=== PATIENT | female | born 1940 | race Caucasian/White ===

== ENCOUNTER 2018-04-23 15:49 | Inpatient (IN) ==
[2018-04-24] MEDS ORDERED: Ipratropium/Albuterol Neb 3 ML IH PRN (16:25)
[2018-04-24] MEDS ORDERED: Dextrose Gel 15 GM/37.5 ML TUBE PO PRN ×2 (16:29)
[2018-04-24] MEDS ORDERED: D5% in Water 1,000 ML IVC PRN (16:29)
[2018-04-24] MEDS ORDERED: *HR* Dextrose 50 % in Water (Syg) 50 ML SYRINGE IVP PRN (16:29)
[2018-04-24] MEDS: Doxycycline 100 MG CAPSULE PO SCH (18:23)
[2018-04-24] MEDS: Insulin LISPRO 300 UNITS/3 ML VIAL SQ SCH ×2 (18:23→21:11)
[2018-04-24] MEDS: *HR* Rivaroxaban 10 MG TABLET PO SCH (18:23)
[2018-04-24] MEDS: *HR* GlipiZIDE XL (24 HR) 10 MG TABLET PO SCH (18:23)
--- NOTE | 2018-04-24 18:34 | Internal Med History&Physical ---
Date of Encounter: 04/24/18 Time of Encounter: 16:00 Internal Medicine - H&P: HPI Chief complaint: Right Total Knee replacement surgery Admitted From: Hospital to Hospital Transfer History of present illness: Ms. Ronquillo is a 78 year old female who had R total knee surgery HPI : Pt is admit to our rehab unit for deconditioning after recent R total knee surgery. Pt has hx of arthritic knee pain. She says her pain is currently well controlled. She says she has good appetite. Denies fever chills. Denies chest pain. Denies headache. She has hx of poorly controlled hypertension and previous cerebrovascular accident, but no recent problems with this, She has had recent good control of blood pressure. Previous imaging showed Severe chronic small-vessel ischemic changes. No previous carotid or cardiac disease She had had diabetes and has been using glipizide denies hypoglycemic issues. 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 PAST SURGICAL HISTORY: Cholecystectomy January of 2012, hysterectomy with BSO 1959, recent knee surgery FAMILY HISTORY: Father secondary to heart disease. Sister with brain cancer. Mother with heart disease. SOCIAL HISTORY: The patient denies ever using tobacco. She does not use alcohol or any illicit drugs. some stress in her life. REVIEW OF SYSTEMS: A 10-point review of systems is obtained and was negative other than what is stated in the history of present illness. PHYSICAL EXAMINATION: GENERAL: The patient is awake, alert, talkative and soft spoken oriented HEENT: perrlac Mucous membranes are tacky. NECK: Supple. thick No lymphadenopathy. no bruit LUNGS: Clear to auscultation bilat abd obese full soft nt bs ext pedal pulses intact neuro: Intact no gross deficits Cranial nerves 2-12 are equal and intact ASSESSMENTS AND PLANS (1) Deconditioning after Right Total Knee replacement surgery pain control therapy ordered PT OT recreation social stable without current complications incentive spirometry (2) Diabetes Type 2 stable appetite fair will add glucerna supplements ok to continue glipizide but if sugars low, will hold check sugars and add slide scale continue statin (3) Chronic kidney disease stable will monitor electrolytes (4) Hypertension - has been difficult in past with hx of prior CVA no recent problems with this BP stable will continue current therapy and continue to monitor (5) hx of barretts esophagus continue PPI DVT prophlyaxis Past Med Surg Social Fam HX - Past Medical History Medical history: CVA, diabetes, GERD, hyperlipidemia, hypertension, thyroid disease Additional medical history: CKD II, Heart murmur, hernia Psychiatric history: no psych history - Past Surgical History Surgical History: hysterectomy Additional surgical history: bilateral breast cyst removal, lumbar fusion, knee replacement - Social History Smoking Status: Never smoker Smokeless Tobacco Status: No Alcohol use: none Drug use: none - Family History Father Hx Family Cancer: Yes Mother Hx Family Cardiac Disorders: Yes Internal Medicine - H&P: Meds Cholecalciferol (Vitamin D3) [Vitamin D3] 1,000 unit PO DAILY 04/24/18 [History] Clopidogrel [Plavix] 75 mg PO DAILY 04/24/18 [History] Esomeprazole Magnesium [Nexium] 40 mg PO QPM 04/24/18 [History] Furosemide [Lasix] 20 mg PO DAILY 04/24/18 [History] GlipiZIDE [Glipizide ER] 10 mg PO QPM 04/24/18 [History] Hydrochlorothiazide 25 mg PO QAM 04/24/18 [History] Labetalol HCl 200 mg PO BID 04/24/18 [History] Levothyroxine Sodium [Synthroid] 137 mcg PO 0600 04/24/18 [History] Lipitor 40 mg PO DAILY 04/24/18 [History] Magnesium Oxide [Magnesium] 400 mg PO TID 04/24/18 [History] Potassium Chloride [K-Tab ER] 20 meq PO BID 04/24/18 [History] amLODIPine [Norvasc] 5 mg PO DAILY 04/24/18 [History] hydrALAZINE [HydrALAZINE] 25 mg PO BID 04/24/18 [History] Allergy/AdvReac Type Severity Reaction Status Date / Time ciprofloxacin Allergy Gastrointestinal Verified 04/24/18 15:23 Upset meperidine [From Demerol] Allergy Anaphylaxis Verified 04/24/18 15:23 morphine Allergy Hives Verified 04/24/18 15:23 pentazocine [From Talwin] Allergy Anaphylaxis Verified 04/24/18 15:23 propoxyphene [From Darvon] Allergy Anaphylaxis Verified 04/24/18 15:23 All Systems PM: A 10-system review of systems was performed and is negative for pertinent findings except as documented above in the HPI. - Constitutional Vitals: Temp Pulse Resp BP Pulse Ox 98.9 F 65 14 159/79 92 04/24/18 15:00 04/24/18 15:00 04/24/18 15:00 04/24/18 15:00 04/24/18 15:00 Internal Med - H&P Results - Labs CBC & Chem 7: 04/26/18 04:20 04/26/18 04:20
[2018-04-24] MEDS: Magnesium Oxide 400 MG TABLET PO SCH (21:15)
[2018-04-24] MEDS: hydrALAZINE 25 MG TABLET PO SCH (21:15)
[2018-04-25] MEDS: *HR* OxyCODONE/APAP 5/325 TABLET PO PRN ×3 (05:49→23:36)
[2018-04-25] MEDS: Doxycycline 100 MG CAPSULE PO SCH ×2 (05:49→17:42)
[2018-04-25 06:18] LABS: Basophils % 0.3 %; Eosinophils # 0.3 K/mcL (0.0-0.6); Eosinophils % 4.5 %; Hematocrit 34.4 % (35.3-44.9); Hemoglobin 11.3 g/dL (11.5-15.4); Immature Granulocytes % 0.4 % (0-4); Lymphocytes # 1.1 K/mcL (0.6-4.6); Lymphocytes % 15.1 %; Mean Corpuscular HGB Conc 32.8 g/dL (31.6-35.5); Mean Corpuscular Hemoglobin 30.1 pg (28.0-33.3); Mean Corpuscular Volume 91.5 fL (83.0-100.0); Mean Platelet Volume 9.3 fL (9.4-12.4); Monocytes # 0.6 K/mcL (0.0-1.3); Monocytes % 7.9 %; Neutrophils # 5.1 K/mcL (1.6-8.9); Platelet Count 233 K/mcL (140-400); Red Blood Count 3.76 M/mcL (3.82-4.97); Red Cell Distribution Width 13.7 % (11.5-14.5); Segmented Neutrophils % 71.8 %
[2018-04-25 06:33] LABS: Calcium 9.6 mg/dL (8.6-10.3); Potassium 3.6 mEq/L (3.5-5.1)
[2018-04-25] MEDS: Insulin LISPRO 300 UNITS/3 ML VIAL SQ SCH ×4 (08:15→20:27)
[2018-04-25] MEDS: Furosemide 20 MG TABLET PO SCH (08:16)
[2018-04-25] MEDS: hydrALAZINE 25 MG TABLET PO SCH ×2 (08:16→20:34)
[2018-04-25] MEDS: Magnesium Oxide 400 MG TABLET PO SCH ×3 (08:16→20:34)
[2018-04-25] MEDS: hydroCHLOROthiazide 25 MG TABLET PO SCH (08:16)
[2018-04-25] MEDS: amLODIPine 5 MG TABLET PO SCH (08:16)
[2018-04-25] MEDS: Cholecalciferol (D-3) 1,000 UNIT TABLET PO SCH (08:16)
[2018-04-25] MEDS: *HR* Rivaroxaban 10 MG TABLET PO SCH (17:42)
[2018-04-25] MEDS: *HR* GlipiZIDE XL (24 HR) 10 MG TABLET PO SCH (17:42)
[2018-04-26] MEDS: Doxycycline 100 MG CAPSULE PO SCH ×2 (04:20→17:02)
[2018-04-26 04:59] LABS: Basophils % 0.4 %; Eosinophils # 0.3 K/mcL (0.0-0.6); Eosinophils % 5.7 %; Hematocrit 33.9 % (35.3-44.9); Immature Granulocytes % 0.5 % (0-4); Lymphocytes # 1.2 K/mcL (0.6-4.6); Lymphocytes % 21.4 %; Mean Corpuscular HGB Conc 32.4 g/dL (31.6-35.5); Mean Corpuscular Hemoglobin 29.6 pg (28.0-33.3); Mean Corpuscular Volume 91.4 fL (83.0-100.0); Mean Platelet Volume 9.3 fL (9.4-12.4); Monocytes # 0.4 K/mcL (0.0-1.3); Monocytes % 7.9 %; Neutrophils # 3.6 K/mcL (1.6-8.9); Platelet Count 226 K/mcL (140-400); Red Blood Count 3.71 M/mcL (3.82-4.97); Red Cell Distribution Width 13.9 % (11.5-14.5); Segmented Neutrophils % 64.1 %
[2018-04-26 05:04] LABS: BUN/Creatinine Ratio 13 (6-26); Blood Urea Nitrogen 13 mg/dL (8-23); Calcium 9.4 mg/dL (8.6-10.3); Carbon Dioxide 32 mEq/L (23-29); Chloride 101 mEq/L (98-107); Glucose 128 mg/dL (70-105); Osmolality,Calculated 292 (280-300); Potassium 3.6 mEq/L (3.5-5.1); Sodium 140 mEq/L (136-145); eGFR For Non-African Americans 55 (> 60)
[2018-04-26] MEDS: Cholecalciferol (D-3) 1,000 UNIT TABLET PO SCH (08:14)
[2018-04-26] MEDS: Insulin LISPRO 300 UNITS/3 ML VIAL SQ SCH ×4 (08:14→21:34)
[2018-04-26] MEDS: hydroCHLOROthiazide 25 MG TABLET PO SCH (08:14)
[2018-04-26] MEDS: amLODIPine 5 MG TABLET PO SCH (08:14)
[2018-04-26] MEDS: hydrALAZINE 25 MG TABLET PO SCH ×2 (08:14→21:35)
[2018-04-26] MEDS: Furosemide 20 MG TABLET PO SCH (08:14)
[2018-04-26] MEDS: Magnesium Oxide 400 MG TABLET PO SCH ×3 (08:14→21:36)
--- NOTE | 2018-04-26 12:01 | Internal Med Progress Note ---
Date of Encounter: 04/25/18 Time of Encounter: 14:00 - Subjective Interval history: Interval History Ms. Ronquillo is a 78 year old female who had R total knee surgery and is 11-9 admit to our rehab unit for deconditioning after recent R total knee surgery. Pt has been doing well no head ache no chest pain. hx of arthritic knee pain. She says her pain is currently well controlled. She says she has improved appetite. Denies fever chills. Denies chest pain. D enies headache. She has hx of poorly controlled hypertension and previous cerebrovascular accident, but no recent problems with this, She has had recent good control of blood pressure on mult medications and diuretics. Previous imaging showed Severe chronic small-vessel ischemic changes. No previous carotid or cardiac disease PHYSICAL EXAMINATION: GENERAL: The patient is awake, alert, talkative and soft spoken oriented HEENT: perrlac Mucous membranes are tacky. NECK: Supple. thick No lymphadenopathy. no bruit LUNGS: Clear to auscultation bilat abd obese full soft nt bs ext pedal pulses intact neuro: Intact no gross deficits Cranial nerves 2-12 are equal and intact ASSESSMENTS AND PLANS (1) Deconditioning after Right Total Knee replacement surgery pain control good therapy ordered PT OT recreation social stable without current complications added incentive spirometry duonebs prn (2) Diabetes Type 2 stable appetite fair will add glucerna supplements trend of sugars low, will reduce her glipizide 224 hr 10 mg to 5 mg dose check sugars and add slide scale continue statin (3) Chronic kidney disease stable GFR 54 will monitor electrolytes (4) Hypertension - has been difficult in past - with hx of prior CVA no recent problems with this admission BP stable will continue current therapy medications and continue to monitor (5) hx of barretts esophagus continue PPI (6) Hypothyroid hx continue replacement med DVT prophlyaxis - on oral xarelto Allergy/AdvReac Type Severity Reaction Status Date / Time ciprofloxacin Allergy Gastrointestinal Verified 04/24/18 15:23 Upset meperidine [From Demerol] Allergy Anaphylaxis Verified 04/24/18 15:23 morphine Allergy Hives Verified 04/24/18 15:23 pentazocine [From Talwin] Allergy Anaphylaxis Verified 04/24/18 15:23 propoxyphene [From Darvon] Allergy Anaphylaxis Verified 04/24/18 15:23 - Constitutional Vitals: Temp Pulse Resp BP Pulse Ox 98.4 F 62 16 149/72 92 04/26/18 07:26 04/26/18 07:26 04/26/18 07:26 04/26/18 07:26 04/26/18 07:26 Internal Medicine: Result - Labs CBC & Chem 7: 04/26/18 04:20 04/26/18 04:20 Labs: Short CBC 04/26/18 Range/Units 04:20 WBC 5.6 (4.3-11.1) K/mcL Hgb 11.0 L (11.5-15.4) g/dL Hct 33.9 L (35.3-44.9) % Plt Count 226 (140-400) K/mcL Neutrophils # 3.6 (1.6-8.9) K/mcL BMP 04/26/18 04:20 Sodium 140 Potassium 3.6 Chloride 101 Carbon Dioxide 32 H BUN 13 Creatinine 0.97 Glucose 128 H Calcium 9.4 Consult Discharge Plan - Plan Referrals: Emil Recio MD [Primary Care Provider] -
--- NOTE | 2018-04-26 12:03 | Internal Med Progress Note ---
Date of Encounter: 04/26/18 Time of Encounter: 12:01 - Subjective Interval history: Interval History Ms. Ronquillo is a 78 year old female who had recent R total knee surgery and is 11-9 admit to our rehab unit for deconditioning after surgery. Pt has been doing well here and participating in therapy. She says still tired. no head ache no chest pain. hx of arthritic knee pain. She says her pain is currently well controlled. She says she has improved appetite. Denies fever chills. Denies chest pain. Denies headache. She has hx of poorly controlled hypertension and previous cerebrovascular accident, but no recent problems with this, She has had recent good control of blood pressure on mult medications and diuretics. Previous imaging showed Severe chronic small-vessel ischemic changes. No previous carotid or cardiac disease PHYSICAL EXAMINATION: GENERAL: The patient is awake, alert, talkative and soft spoken oriented WF HEENT: no lesion NECK: Supple. thick No lymphadenopathy. no bruit LUNGS: Clear to auscultation bilat abd obese full soft nt bs ext pedal pulses intact neuro: Intact no gross deficits Cranial nerves 2-12 are equal and intact ASSESSMENTS AND PLANS (1) Deconditioning after Right Total Knee replacement surgery pain control good therapy ordered PT OT recreation social stable without current complications added incentive spirometry duonebs prn (2) Diabetes Type 2 stable appetite fair will add glucerna supplements trend of sugars low, will reduce her glipizide 224 hr 10 mg to 5 mg dose check sugars and add slide scale continue statin (3) Chronic kidney disease stable GFR 54 will monitor electrolytes (4) Hypertension - has been difficult in past - with hx of prior CVA no recent problems with this admission BP stable will continue current therapy medications and continue to monitor (5) hx of barretts esophagus continue PPI (6) Hypothyroid hx continue replacement med DVT prophlyaxis - on oral xarelto Allergy/AdvReac Type Severity Reaction Status Date / Time ciprofloxacin Allergy Gastrointestinal Verified 04/24/18 15:23 Upset meperidine [From Demerol] Allergy Anaphylaxis Verified 04/24/18 15:23 morphine Allergy Hives Verified 04/24/18 15:23 pentazocine [From Talwin] Allergy Anaphylaxis Verified 04/24/18 15:23 propoxyphene [From Darvon] Allergy Anaphylaxis Verified 04/24/18 15:23 - Constitutional Vitals: Temp Pulse Resp BP Pulse Ox 98.4 F 62 16 149/72 92 04/26/18 07:26 04/26/18 07:26 04/26/18 07:26 04/26/18 07:26 04/26/18 07:26 Internal Medicine: Result - Labs CBC & Chem 7: 04/26/18 04:20 04/26/18 04:20 Labs: Short CBC 04/26/18 Range/Units 04:20 WBC 5.6 (4.3-11.1) K/mcL Hgb 11.0 L (11.5-15.4) g/dL Hct 33.9 L (35.3-44.9) % Plt Count 226 (140-400) K/mcL Neutrophils # 3.6 (1.6-8.9) K/mcL BMP 04/26/18 04:20 Sodium 140 Potassium 3.6 Chloride 101 Carbon Dioxide 32 H BUN 13 Creatinine 0.97 Glucose 128 H Calcium 9.4 Consult Discharge Plan - Plan Referrals: Emil Recio MD [Primary Care Provider] -
[2018-04-26] MEDS: Lactobacillus 1 EACH CAP.SPRINK PO SCH (15:10)
[2018-04-26] MEDS: Ipratropium/Albuterol Neb 3 ML IH SCH ×2 (15:10→21:41)
[2018-04-26 16:06] LABS: Bilirubin,Urine Negative (Negative); Blood,Urine Negative (Negative); Clarity,Urine Clear (Clear); Color,Urine Yellow (Yellow); Glucose,Urine (UA) Normal (Normal); Ketones,Urine Negative (Negative); Leukocyte Esterase,Urine Negative (Negative); Nitrite,Urine Negative (Negative); Protein,Urine Negative (Neg-Trace); Specific Gravity,Urine 1.015 (1.010-1.025); Urobilinogen,Urine Normal (Normal)
[2018-04-26] MEDS: *HR* GlipiZIDE XL (24 HR) 2.5 MG TABLET PO SCH (17:02)
[2018-04-26] MEDS: *HR* Rivaroxaban 10 MG TABLET PO SCH (17:02)
[2018-04-26] MEDS: *HR* OxyCODONE/APAP 5/325 TABLET PO PRN (21:40)
[2018-04-27] MEDS: Ipratropium/Albuterol Neb 3 ML IH SCH ×4 (04:03→20:42)
[2018-04-27 05:18] LABS: Basophils % 0.6 %; Eosinophils # 0.3 K/mcL (0.0-0.6); Eosinophils % 5.3 %; Hematocrit 33.5 % (35.3-44.9); Immature Granulocytes % 1.1 % (0-4); Lymphocytes # 1.2 K/mcL (0.6-4.6); Lymphocytes % 18.7 %; Mean Corpuscular HGB Conc 32.8 g/dL (31.6-35.5); Mean Corpuscular Hemoglobin 29.8 pg (28.0-33.3); Mean Corpuscular Volume 90.8 fL (83.0-100.0); Mean Platelet Volume 9.4 fL (9.4-12.4); Monocytes # 0.6 K/mcL (0.0-1.3); Neutrophils # 4.1 K/mcL (1.6-8.9); Platelet Count 251 K/mcL (140-400); Red Blood Count 3.69 M/mcL (3.82-4.97); Red Cell Distribution Width 13.7 % (11.5-14.5); Segmented Neutrophils % 65.3 %
[2018-04-27 05:40] LABS: BUN/Creatinine Ratio 13 (6-26); Blood Urea Nitrogen 13 mg/dL (8-23); Calcium 9.6 mg/dL (8.6-10.3); Carbon Dioxide 33 mEq/L (23-29); Chloride 100 mEq/L (98-107); Glucose 102 mg/dL (70-105); Osmolality,Calculated 290 (280-300); Potassium 3.5 mEq/L (3.5-5.1); Sodium 140 mEq/L (136-145); eGFR For Non-African Americans 52 (> 60)
[2018-04-27] MEDS: Doxycycline 100 MG CAPSULE PO SCH ×2 (06:06→18:59)
[2018-04-27] MEDS: Acetaminophen 325 MG TABLET PO PRN ×3 (06:19→18:59)
[2018-04-27] MEDS: Furosemide 20 MG TABLET PO SCH (08:43)
[2018-04-27] MEDS: Lactobacillus 1 EACH CAP.SPRINK PO SCH (08:43)
[2018-04-27] MEDS: amLODIPine 5 MG TABLET PO SCH (08:43)
[2018-04-27] MEDS: hydrALAZINE 25 MG TABLET PO SCH ×2 (08:43→20:41)
[2018-04-27] MEDS: hydroCHLOROthiazide 25 MG TABLET PO SCH (08:43)
[2018-04-27] MEDS: Cholecalciferol (D-3) 1,000 UNIT TABLET PO SCH (08:43)
[2018-04-27] MEDS: Magnesium Oxide 400 MG TABLET PO SCH ×3 (08:44→20:41)
[2018-04-27] MEDS: Insulin LISPRO 300 UNITS/3 ML VIAL SQ SCH ×4 (08:44→20:42)
--- NOTE | 2018-04-27 15:17 | Internal Med Progress Note ---
Addendum entered and electronically signed by Truman Sanchez DO 05/01/18 11:37: I have personally performed a face to face evaluation on this patient. I have reviewed and agree with the care plan. History and Exam by me shows: Original Note: Date of Encounter: 04/27/18 Time of Encounter: 15:15 - Assessment and plan (1) S/P total knee replacement Current Visit: Yes Status: Acute Assessment and plan: Continue PT and OT. Will follow progress. Pain controlled with current medication. Follow up with ortho as scheduled. Qualifiers: Laterality: right Qualified Code(s): Z96.651 - Presence of right artificial knee joint (2) Hypertension Current Visit: Yes Status: Acute Assessment and plan: Controlled with current medication. Monitor blood pressure. Qualifiers: Hypertension type: essential hypertension Qualified Code(s): I10 - Essential (primary) hypertension (3) Type 2 diabetes mellitus Current Visit: Yes Status: Acute Assessment and plan: Controlled with current medication. Monitor fingerstick blood sugar. Will adjust medicines as necessary. Qualifiers: Diabetes mellitus longterm insulin use: without longterm use Diabetes mellitus complication status: without complication Qualified Code(s): E11.9 - Type 2 diabetes mellitus without complications - Time Spent With Patient less than 15 minutes - Subjective Interval history: Participating well with therapy. Transfers with contact guard assist. States pain is controlled with oxycodone. Remains on O2 at 2 L. Saturation greater th an 92%. Working on weaning off oxygen. on xarelto for DVT prophylaxis. Denies fever, chills, nausea vomiting or diarrhea. Last BM yesterday. Maintaining appetite and hydration. - Constitutional Vitals: Temp Pulse Resp BP Pulse Ox 97.9 F 70 19 178/79 97 04/27/18 07:52 04/27/18 07:52 04/27/18 09:11 04/27/18 07:52 04/27/18 09:11 General appearance: Present: cooperative, A&O X 3, pleasant, no acute distress, obese, answers questions appropriately - Head Head exam: Present: atraumatic, normocephalic - Eye Eye exam: Present: PERRL, conjuntiva pink, sclera anicteric Pupils: Present: PERRL - Neck Neck exam general surgery: Present: supple, trachea midline. Absent: lymphadenopathy - Respiratory Respiratory exam: Present: CTAB. Absent: accessory muscle use, rales, rhonchi, wheezes - Cardiovascular Cardiovascular exam: Present: RRR, +S1, +S2. Absent: diastolic murmur, gallop, rubs, systolic murmur - GI/Abdominal GI/Abdominal exam: Present: normal bowel sounds, soft, no peritoneal signs. Absent: distended, tenderness - Extremities Exam Extremities exam: Present: warm, radial pulses palpable and symmetrical. Absent: calf tenderness, cyanotic, pedal edema - Incison Comments: Right knee incision dressing dry and intact. - Neurological Exam Neurological exam: Present: CN II-XII intact, oriented X3, no focal deficits. Absent: pronater drift, facial droop, speech deficit - Skin Skin exam: Present: dry, intact Internal Medicine: Result - Labs CBC & Chem 7: 04/27/18 04:22 04/27/18 04:22 Labs: Short CBC 04/27/18 Range/Units 04:22 WBC 6.2 (4.3-11.1) K/mcL Hgb 11.0 L (11.5-15.4) g/dL Hct 33.5 L (35.3-44.9) % Plt Count 251 (140-400) K/mcL Neutrophils # 4.1 (1.6-8.9) K/mcL BMP 04/27/18 04:22 Sodium 140 Potassium 3.5 Chloride 100 Carbon Dioxide 33 H BUN 13 Creatinine 1.02 Glucose 102 Calcium 9.6 Urine 04/26/18 Range/Units 15:30 Urine Color Yellow (Yellow) Urine Clarity Clear (Clear) Urine pH 6.0 (5.0-8.0) pH Units Ur Specific [place] 1.015 (1.010-1.025) Urine Protein Negative (Neg-Trace) mg/dL Urine Glucose (UA) Normal (Normal) mg/dL - Impressions Impressions Chest X-Ray 04/27/18 08:03 IMPRESSION: Cardiomegaly, with a hiatal hernia and vascular congestion. D/ / Srikanth Lloyd MD / Srikanth Lloyd MD Interpreting Provider: Srikanth Lloyd MD Consult Discharge Plan - Plan Referrals: Emil Recio MD [Primary Care Provider] -
[2018-04-27] MEDS: *HR* Rivaroxaban 10 MG TABLET PO SCH (18:59)
[2018-04-27] MEDS: *HR* GlipiZIDE XL (24 HR) 2.5 MG TABLET PO SCH (18:59)
[2018-04-28] MEDS: Ipratropium/Albuterol Neb 3 ML IH SCH ×4 (05:01→21:10)
[2018-04-28] MEDS: Doxycycline 100 MG CAPSULE PO SCH ×2 (05:34→16:16)
[2018-04-28] MEDS: Acetaminophen 325 MG TABLET PO PRN ×3 (05:34→22:38)
[2018-04-28] MEDS: Magnesium Oxide 400 MG TABLET PO SCH ×3 (08:25→20:50)
[2018-04-28] MEDS: Insulin LISPRO 300 UNITS/3 ML VIAL SQ SCH ×4 (08:25→20:52)
[2018-04-28] MEDS: hydrALAZINE 25 MG TABLET PO SCH ×2 (08:26→20:50)
[2018-04-28] MEDS: Lactobacillus 1 EACH CAP.SPRINK PO SCH (08:26)
[2018-04-28] MEDS: Cholecalciferol (D-3) 1,000 UNIT TABLET PO SCH (08:26)
[2018-04-28] MEDS: amLODIPine 5 MG TABLET PO SCH (08:26)
[2018-04-28] MEDS: Furosemide 20 MG TABLET PO SCH (08:26)
[2018-04-28] MEDS: hydroCHLOROthiazide 25 MG TABLET PO SCH (08:26)
--- NOTE | 2018-04-28 10:25 | Internal Med Progress Note ---
Addendum entered and electronically signed by Truman Sanchez DO 05/01/18 11:38: I have personally performed a face to face evaluation on this patient. I have reviewed and agree with the care plan. History and Exam by me shows: Original Note: Date of Encounter: 04/28/18 Time of Encounter: 10:23 - Assessment and plan (1) S/P total knee replacement Current Visit: Yes Status: Acute Assessment and plan: Continue PT and OT. Will follow progress. Pain controlled with current medication. Follow up with ortho as scheduled. Qualifiers: Laterality: right Qualified Code(s): Z96.651 - Presence of right artificial knee joint (2) Hypertension Current Visit: Yes Status: Acute Assessment and plan: Controlled with current medication. Monitor blood pressure. Qualifiers: Hypertension type: essential hypertension Qualified Code(s): I10 - Essential (primary) hypertension (3) Type 2 diabetes mellitus Current Visit: Yes Status: Acute Assessment and plan: Controlled with current medication. Monitor fingerstick blood sugar. Will adjust medicines as necessary. Qualifiers: Diabetes mellitus long-term insulin use: without long-term use Diabetes mellitus complication status: without complication Qualified Code(s): E11.9 - Type 2 diabetes mellitus without complications - Time Spent With Patient less than 15 minutes - Subjective Interval history: very tearful and worried about discharge, takes care of disabled daughter. son helping now. Participating well with therapy. Transfers with contact guard as sist. States pain is controlled with oxycodone. Remains on O2 at 2 L. Saturation greater than 95%. Working on weaning off oxygen. on xarelto for DVT prophylaxis. Denies fever, chills, nausea vomiting or diarrhea. Last BM yesterday. Maintaining appetite and hydration. - Constitutional Vitals: Temp Pulse Resp BP Pulse Ox 98.5 F 62 19 129/64 97 04/27/18 19:16 04/27/18 19:16 04/28/18 10:09 04/27/18 19:16 04/28/18 10:09 General appearance: Present: cooperative, A&O X 3, pleasant, no acute distress, obese, answers questions appropriately - Head Head exam: Present: atraumatic, normocephalic - Eye Eye exam: Present: PERRL, conjuntiva pink, sclera anicteric Pupils: Present: PERRL - Neck Neck exam general surgery: Present: supple, trachea midline. Absent: lymphadenopathy - Respiratory Respiratory exam: Present: CTAB. Absent: accessory muscle use, rales, rhonchi, wheezes - Cardiovascular Cardiovascular exam: Present: RRR, +S1, +S2. Absent: diastolic murmur, gallop, rubs, systolic murmur - GI/Abdominal GI/Abdominal exam: Present: normal bowel sounds, soft, no peritoneal signs. Absent: distended, tenderness - Extremities Exam Extremities exam: Present: warm, radial pulses palpable and symmetrical. Absent: calf tenderness, cyanotic, pedal edema - Incison Comments: right knee incision drsg dry and intact. surrounding edema present. - Neurological Exam Neurological exam: Present: CN II-XII intact, oriented X3, no focal deficits. Absent: pronater drift, facial droop, speech deficit - Skin Skin exam: Present: dry, intact Internal Medicine: Result - Labs CBC & Chem 7: 04/27/18 04:22 04/27/18 04:22 Consult Discharge Plan - Plan Referrals: Emil Recio MD [Primary Care Provider] -
[2018-04-28] MEDS: *HR* OxyCODONE/APAP 5/325 TABLET PO PRN (11:34)
[2018-04-28] MEDS: *HR* GlipiZIDE XL (24 HR) 2.5 MG TABLET PO SCH (16:16)
[2018-04-28] MEDS: *HR* Rivaroxaban 10 MG TABLET PO SCH (16:16)
[2018-04-29] MEDS: Ipratropium/Albuterol Neb 3 ML IH SCH ×4 (04:01→20:20)
[2018-04-29] MEDS: Acetaminophen 325 MG TABLET PO PRN ×2 (05:18→12:07)
[2018-04-29] MEDS: Doxycycline 100 MG CAPSULE PO SCH ×2 (05:18→17:28)
[2018-04-29] MEDS: Insulin LISPRO 300 UNITS/3 ML VIAL SQ SCH ×4 (08:52→22:02)
[2018-04-29] MEDS: Furosemide 20 MG TABLET PO SCH (08:53)
[2018-04-29] MEDS: Magnesium Oxide 400 MG TABLET PO SCH ×3 (08:53→17:28)
[2018-04-29] MEDS: Lactobacillus 1 EACH CAP.SPRINK PO SCH (08:53)
[2018-04-29] MEDS: amLODIPine 5 MG TABLET PO SCH (08:53)
[2018-04-29] MEDS: Cholecalciferol (D-3) 1,000 UNIT TABLET PO SCH (08:53)
[2018-04-29] MEDS: hydrALAZINE 25 MG TABLET PO SCH ×2 (08:53→20:19)
[2018-04-29] MEDS: hydroCHLOROthiazide 25 MG TABLET PO SCH (08:54)
--- NOTE | 2018-04-29 14:14 | Internal Med Progress Note ---
Addendum entered and electronically signed by Truman Sanchez DO 05/01/18 11:38: I have personally performed a face to face evaluation on this patient. I have reviewed and agree with the care plan. History and Exam by me shows: Original Note: Date of Encounter: 04/29/18 Time of Encounter: 14:12 - Assessment and plan (1) S/P total knee replacement Current Visit: Yes Status: Acute Assessment and plan: Continue PT and OT. Pain controlled with current medication. Follow up with ortho as scheduled. Qualifiers: Laterality: right Qualified Code(s): Z96.651 - Presence of right artificial knee joint (2) Hypertension Current Visit: Yes Status: Acute Assessment and plan: Controlled with current medication. Monitor blood pressure. Qualifiers: Hypertension type: essential hypertension Qualified Code(s): I10 - Essential (primary) hypertension (3) Type 2 diabetes mellitus Current Visit: Yes Status: Acute Assessment and plan: Controlled with current medication. Monitor fingerstick blood sugar. Will adjust medicines as necessary. Qualifiers: Diabetes mellitus intermediate insulin use: without intermediate use Diabetes mellitus complication status: without complication Qualified Code(s): E11.9 - Type 2 diabetes mellitus without complications - Time Spent With Patient less than 15 minutes - Subjective Interval history: Participating well with therapy. Patient is now modified independent to standby assist with transfers and ambulation. Ambulated 150 feet with therapy. Pain controlled with current medication. Maintaining appetite and hydration. Last bowel movement this morning. Denies fever, chills, nausea vomiting or diarrhea. Denies shortness of breath or chest pain. Patient is now on room air maintaining sats greater than 94%. - Constitutional Vitals: Temp Pulse Resp BP Pulse Ox 98.3 F 58 18 168/77 93 04/29/18 06:57 04/29/18 06:57 04/29/18 09:17 04/29/18 06:57 04/29/18 09:17 General appearance: Present: cooperative, A&O X 3, pleasant, no acute distress, obese, answers questions appropriately - Head Head exam: Present: atraumatic, normocephalic - Eye Eye exam: Present: PERRL, conjuntiva pink, sclera anicteric Pupils: Present: PERRL - Neck Neck exam general surgery: Present: supple, trachea midline. Absent: lymphadenopathy - Respiratory Respiratory exam: Present: CTAB. Absent: accessory muscle use, rales, rhonchi, wheezes - Cardiovascular Cardiovascular exam: Present: RRR, +S1, +S2. Absent: diastolic murmur, gallop, rubs, systolic murmur - GI/Abdominal GI/Abdominal exam: Present: normal bowel sounds, soft, no peritoneal signs. Absent: distended, tenderness - Extremities Exam Extremities exam: Present: warm, radial pulses palpable and symmetrical. Absent: calf tenderness, cyanotic, pedal edema - Incison Comments: Right knee incision well approximated. No drainage. No sign of infection. Surrounding non-pitting edema. - Neurological Exam Neurological exam: Present: CN II-XII intact, oriented X3, no focal deficits. Absent: pronater drift, facial droop, speech deficit - Skin Skin exam: Present: dry, intact Internal Medicine: Result - Labs CBC & Chem 7: 04/27/18 04:22 04/27/18 04:22 Consult Discharge Plan - Plan Referrals: Emil Recio MD [Primary Care Provider] -
[2018-04-29] MEDS: *HR* GlipiZIDE XL (24 HR) 2.5 MG TABLET PO SCH (17:28)
[2018-04-29] MEDS: *HR* Rivaroxaban 10 MG TABLET PO SCH (17:28)
[2018-04-30] MEDS: Ipratropium/Albuterol Neb 3 ML IH SCH ×4 (04:11→21:32)
[2018-04-30] MEDS: Doxycycline 100 MG CAPSULE PO SCH ×2 (05:52→17:13)
[2018-04-30] MEDS: Lactobacillus 1 EACH CAP.SPRINK PO SCH (08:04)
[2018-04-30] MEDS: Cholecalciferol (D-3) 1,000 UNIT TABLET PO SCH (08:05)
[2018-04-30] MEDS: hydroCHLOROthiazide 25 MG TABLET PO SCH (08:05)
[2018-04-30] MEDS: hydrALAZINE 25 MG TABLET PO SCH ×2 (08:05→21:32)
[2018-04-30] MEDS: amLODIPine 5 MG TABLET PO SCH (08:05)
[2018-04-30] MEDS: Insulin LISPRO 300 UNITS/3 ML VIAL SQ SCH ×4 (08:05→21:31)
[2018-04-30] MEDS: Furosemide 20 MG TABLET PO SCH (08:05)
[2018-04-30] MEDS: Magnesium Oxide 400 MG TABLET PO SCH ×4 (08:05→21:33)
[2018-04-30] MEDS: Acetaminophen 325 MG TABLET PO PRN (14:00)
--- NOTE | 2018-04-30 16:11 | Internal Med Progress Note ---
Addendum entered and electronically signed by Truman Sanchez DO 05/01/18 11:39: I have personally performed a face to face evaluation on this patient. I have reviewed and agree with the care plan. History and Exam by me shows: Original Note: Date of Encounter: 04/30/18 Time of Encounter: 16:09 - Assessment and plan (1) S/P total knee replacement Current Visit: Yes Status: Acute Assessment and plan: Patient's knee appears healthy at incision with dressing dry and intact. Slight swelling noted. Patient states pain remains tolerable with current medications and icing. We will continue with physical therapy which has been progressing well. Patient being prepared for possible discharge tomorrow Qualifiers: Laterality: right Qualified Code(s): Z96.651 - Presence of right artificial knee joint (2) Hypertension Current Visit: Yes Status: Chronic Assessment and plan: Vital signs are stable. We will continue with current medications. Qualifiers: Hypertension type: essential hypertension Qualified Code(s): I10 - Essential (primary) hypertension (3) Type 2 diabetes mellitus Current Visit: Yes Status: Chronic Assessment and plan: No acute issues. Patient's glucose (well-controlled with current medications. We will continue with current plan of care Qualifiers: Diabetes mellitus ocean transportation intermediary insulin use: without assisted use Diabetes mellitus complication status: without complication Qualified Code(s): E11.9 - Type 2 diabetes mellitus without complications - Time Spent With Patient less than 15 minutes - Subjective Interval history: Patient appears relaxed currently denies any discomforts and shortness of breath. Patient states she continues to have slight pain to the surgical knee during physical therapy, but after applying ice and taking medication her pain is very tolerable. Patient states that she will be going home tomorrow and feels ready to discharge. - Constitutional Vitals: Temp Pulse Resp BP Pulse Ox 98.5 F 69 18 138/77 96 04/30/18 07:56 04/30/18 07:56 04/30/18 15:08 04/30/18 07:56 04/30/18 15:08 General appearance: Present: cooperative, A&O X 3, pleasant, no acute distress, obese, answers questions appropriately - Head Head exam: Present: atraumatic, normocephalic - Eye Eye exam: Present: PERRL, conjuntiva pink, sclera anicteric Pupils: Present: PERRL - Neck Neck exam general surgery: Present: supple, trachea midline. Absent: lymphadenopathy - Respiratory Respiratory exam: Present: CTAB. Absent: accessory muscle use, rales, rhonchi, wheezes - Cardiovascular Cardiovascular exam: Present: RRR, +S1, +S2. Absent: diastolic murmur, gallop, rubs, systolic murmur - GI/Abdominal GI/Abdominal exam: Present: normal bowel sounds, soft, no peritoneal signs. Absent: distended, tenderness - Extremities Exam Extremities exam: Present: warm, radial pulses palpable and symmetrical. Absent: calf tenderness, cyanotic, pedal edema Additional comments: Right knee remains slightly swollen. Midline incision appears healthy and intact. - Neurological Exam Neurological exam: Present: CN II-XII intact, oriented X3, no focal deficits. Absent: pronater drift, facial droop, speech deficit - Skin Skin exam: Present: dry, intact Internal Medicine: Result - Labs CBC & Chem 7: 04/27/18 04:22 04/27/18 04:22 Consult Discharge Plan - Plan Referrals: Emil Recio MD [Primary Care Provider] - Kenny Lamar DO [Non-Partnered Physician] - 05/13/18 8:15 am (appoint adrress [address] )
[2018-04-30] MEDS: *HR* Rivaroxaban 10 MG TABLET PO SCH (17:13)
[2018-04-30] MEDS: *HR* GlipiZIDE XL (24 HR) 2.5 MG TABLET PO SCH (17:13)
[2018-05-01] MEDS: Acetaminophen 325 MG TABLET PO PRN (06:24)
[2018-05-01] MEDS: Doxycycline 100 MG CAPSULE PO SCH (06:24)
[2018-05-01] MEDS: Ipratropium/Albuterol Neb 3 ML IH SCH ×2 (06:24→11:24)
[2018-05-01] MEDS: Magnesium Oxide 400 MG TABLET PO SCH ×2 (08:32→14:12)
[2018-05-01] MEDS: Furosemide 20 MG TABLET PO SCH (08:32)
[2018-05-01] MEDS: Cholecalciferol (D-3) 1,000 UNIT TABLET PO SCH (08:32)
[2018-05-01] MEDS: Lactobacillus 1 EACH CAP.SPRINK PO SCH (08:32)
[2018-05-01] MEDS: amLODIPine 5 MG TABLET PO SCH (08:32)
[2018-05-01] MEDS: hydroCHLOROthiazide 25 MG TABLET PO SCH (08:32)
[2018-05-01] MEDS: hydrALAZINE 25 MG TABLET PO SCH (08:32)
[2018-05-01] MEDS: Insulin LISPRO 300 UNITS/3 ML VIAL SQ SCH ×2 (08:35→12:50)
[2018-05-01 08:59] VITALS: BP 133/70
--- NOTE | 2018-05-01 10:02 | Discharge Summary ---
Addendum entered and electronically signed by Truman Sanchez DO 05/01/18 11:39: I have personally performed a face to face evaluation on this patient. I have reviewed and agree with the care plan. History and Exam by me shows: Original Note: Orders not resulted at time of discharge: Pending orders 05/04/18 04:00 BMP [Basic Metabolic Panel] Routine CBC [Complete Blood Count] [HEME] AM 0400 Date of Encounter: 05/01/18 Time of Encounter: 10:00 - Discharge Diagnosis (1) S/P total knee replacement Priority: Primary Status: Acute Comments: Patient was admitted to this facility for rehabilitation due to deconditioning after a right total knee replacement. Right knee surgical incision remains dry and intact with no edema or ecchymosis noted. No erythema. Patient has progressed well with physical therapy. Patient is to discharge home and continued therapy through home pulse services. Patient is to follow-up with orthopedic surgeon and PCP. Patient will continue with home medications Qualifiers: Laterality: right Qualified Code(s): Z96.651 - Presence of right artificial knee joint (2) Hypertension Priority: Secondary Status: Chronic Comments: Vital signs remained stable during her stay at this facility and patient is to continue with home medications. Patient to follow-up with PCP Qualifiers: Hypertension type: essential hypertension Qualified Code(s): I10 - Essential (primary) hypertension (3) Type 2 diabetes mellitus Priority: Secondary Status: Chronic Comments: Patient's glucose was well-controlled during her stay at this facility. Patient is a continue with current medication regimen. Follow-up with PCP Qualifiers: Diabetes mellitus usp insulin use: without manager intermediate use Diabetes mellitus complication status: without complication Qualified Code(s): E11.9 - Type 2 diabetes mellitus without complications Hospital course: Ms. Ronquillo is a 78 year old female who had a right total knee replacement due to osteoarthritis. Patient was transferred to this facility for further rehabilitation due to deconditioning. Surgical incision remained dry and intact and appears healthy. No edema or erythema noted. Patient progressed well with physical therapy and will continue her physical therapy through home health services. Pain was well-controlled with current medications. Patient is continue with her home medications after discharge. Patient will follow-up with orthopedic surgeon and PCP Discharge discussed with: patient Time spent discussing smoking cessation with patient: 3 to 10 minutes - Time Spent with Patient Total time spent providing and/or coordinating discharge services: Less than 30 minutes - Discharge Medications Home Medications: Cholecalciferol (Vitamin D3) [Vitamin D3] 1,000 unit PO DAILY 04/24/18 [History] Clopidogrel [Plavix] 75 mg PO DAILY 04/24/18 [History] Esomeprazole Magnesium [Nexium] 40 mg PO QPM 04/24/18 [History] Furosemide [Lasix] 20 mg PO DAILY 04/24/18 [History] Hydrochlorothiazide 25 mg PO QAM 04/24/18 [History] Labetalol HCl 200 mg PO BID 04/24/18 [History] Levothyroxine Sodium [Synthroid] 137 mcg PO 0600 04/24/18 [History] Lipitor 40 mg PO DAILY 04/24/18 [History] Magnesium Oxide [Magnesium] 400 mg PO TID 04/24/18 [History] Potassium Chloride [K-Tab ER] 20 meq PO BID 04/24/18 [History] amLODIPine [Norvasc] 5 mg PO DAILY 04/24/18 [History] glipiZIDE [Glipizide ER] 10 mg PO QPM 04/24/18 [History] hydrALAZINE [HydrALAZINE] 25 mg PO BID 04/24/18 [History] Allergies/Adverse Reactions: Allergy/AdvReac Type Severity Reaction Status Date / Time ciprofloxacin Allergy Gastrointestinal Verified 04/24/18 15:23 Upset meperidine [From Demerol] Allergy Anaphylaxis Verified 04/24/18 15:23 morphine Allergy Hives Verified 04/24/18 15:23 pentazocine [From Talwin] Allergy Anaphylaxis Verified 04/24/18 15:23 propoxyphene [From Darvon] Allergy Anaphylaxis Verified 04/24/18 15:23 Date of admission: 04/24/18 14:43 Primary care physician: Emil Recio MD Consults: 04/25/18 09:27 Consult to Occupational Therapy [CONS] Routine Comment: Evaluate, develop and implement POC Reason for Consult: s/p RTK Does patient have active BEDREST order?: No Is patient medically & hemodynamically stable?: Yes Consult to Physical Medicine/Rehab [CONS] Routine Reason for Consult: Please evaluate and manage therapies' guidelines and recommend pathway to reconditioning. Call Completed: Yes Consult to Physical Therapy [CONS] Routine Comment: Evaluate, develop and implement POC Reason for Consult: s/p RTK Does patient have active BEDREST order?: No Is patient medically & hemodynamically stable?: Yes Consult to Recreational Therapy [CONS] Routine Comment: 04/25/18 09:28 Consult to Industrial Engineering [CONS] Routine Reason for SW Consult: Please evaluate for home situation and discharge planning Discharging clinician: Truman Sanchez - Constitutional Vitals: Temp Pulse Resp BP Pulse Ox 97.8 F 67 17 133/70 91 05/01/18 08:59 05/01/18 08:59 05/01/18 08:59 05/01/18 08:59 05/01/18 08:59 General appearance: Present: cooperative, A&O X 3, pleasant, no acute distress, obese, answers questions appropriately - Head Head exam: Present: atraumatic, normocephalic - Eye Eye exam: Present: PERRL, conjuntiva pink, sclera anicteric Pupils: Present: PERRL - Neck Neck exam general surgery: Present: supple, trachea midline. Absent: lymphadenopathy - Respiratory Respiratory exam: Present: CTAB. Absent: accessory muscle use, rales, rhonchi, wheezes - Cardiovascular Cardiovascular exam: Present: RRR, +S1, +S2. Absent: diastolic murmur, gallop, rubs, systolic murmur - GI/Abdominal GI/Abdominal exam: Present: normal bowel sounds, soft, no peritoneal signs. Absent: distended, tenderness - Extremities Exam Extremities exam: Present: warm, radial pulses palpable and symmetrical. Absent: calf tenderness, cyanotic, pedal edema Additional comments: Right knee has midline incision that appears dry and intact. Appears healthy. - Neurological Exam Neurological exam: Present: CN II-XII intact, oriented X3, no focal deficits. Absent: pronater drift, facial droop, speech deficit - Skin Skin exam: Present: dry, intact - Patient Status Disposition: Home Health Service Condition: Good Functional capacity at discharge: uses cane/walker Overall status at discharge: patient is progressing back to baseline - Discharge Instructions Follow Up With: Emil Recio MD [Primary Care Provider] - Kenny Lamar DO [Non-Partnered Physician] - 05/13/18 8:15 am (appoint adrress [address] ) - Diet and Activity Activity: ambulate only with your walker, as per physical therapy Diet: diabetic diet
--- NOTE | 2018-05-01 10:09 | Physician Discharge Referral ---
Addendum entered and electronically signed by Truman Sanchez DO 05/01/18 11:40: I have personally performed a face to face evaluation on this patient. I have reviewed and agree with the care plan. History and Exam by me shows: Original Note: Home Health/Hosp Referral Info Transfer to: Home Health Provider in Charge Post Discharge: PCP - Diagnosis (1) S/P total knee replacement Priority: Primary Status: Acute (2) Hypertension Priority: Secondary Status: Chronic (3) Type 2 diabetes mellitus Priority: Secondary Status: Chronic - Respiratory Orders Smoking Cessation: Smoking cessation has been advised. For more information, call the [place] Tobacco Quit Line at 6-178-LINB-NOW. - Diet/Nutrition Diet/Nutrition Orders: No Concentrated Sweets - Activity Activity Orders: Up ad tracy, Walker - Services Needed Following services are medically necessary services: Nursing, Physical Therapy - Transfer Medications Home Medications: Cholecalciferol (Vitamin D3) [Vitamin D3] 1,000 unit PO DAILY 04/24/18 [History] Clopidogrel [Plavix] 75 mg PO DAILY 04/24/18 [History] Esomeprazole Magnesium [Nexium] 40 mg PO QPM 04/24/18 [History] Furosemide [Lasix] 20 mg PO DAILY 04/24/18 [History] Hydrochlorothiazide 25 mg PO QAM 04/24/18 [History] Labetalol HCl 200 mg PO BID 04/24/18 [History] Levothyroxine Sodium [Synthroid] 137 mcg PO 0600 04/24/18 [History] Lipitor 40 mg PO DAILY 04/24/18 [History] Magnesium Oxide [Magnesium] 400 mg PO TID 04/24/18 [History] Potassium Chloride [K-Tab ER] 20 meq PO BID 04/24/18 [History] amLODIPine [Norvasc] 5 mg PO DAILY 04/24/18 [History] glipiZIDE [Glipizide ER] 10 mg PO QPM 04/24/18 [History] hydrALAZINE [HydrALAZINE] 25 mg PO BID 04/24/18 [History] Allergies/Adverse Reactions: Allergy/AdvReac Type Severity Reaction Status Date / Time ciprofloxacin Allergy Gastrointestinal Verified 04/24/18 15:23 Upset meperidine [From Demerol] Allergy Anaphylaxis Verified 04/24/18 15:23 morphine Allergy Hives Verified 04/24/18 15:23 pentazocine [From Talwin] Allergy Anaphylaxis Verified 04/24/18 15:23 propoxyphene [From Darvon] Allergy Anaphylaxis Verified 04/24/18 15:23 Certification: Further, I certify that my clinical findings support that this patient is homebound (i.e. absences from home require considerable and taxing effort and are for medical reasons or oriental orthodox services or infrequently or short duration when for other reasons) because: Homebound Reason: Patient requires assistance of a person or device to safely leave home, Post-surgery restriction and or conditions limit ability to leave home Attestation: My signature below is to certify that this patient is under my care and that I, or nurse practitioner, or a physician's regulatory assistant working with me, has a [id number] encounter with this patient.
[2018-05-01] MEDS: *HR* OxyCODONE/APAP 5/325 TABLET PO PRN (14:12)
== END 2018-05-01 16:12 | disposition home health service (06) | DRG 561 ==
LOC: INPGRE 04-24 14:43